=== PATIENT | female | born 1985 | race Caucasian/White ===

== ENCOUNTER 2020-11-04 09:48 | Day surgery (SDC) | payer OTHER, SELFPAY ==
[~2020-11-04] VITALS: Ht 162.6 cm; Wt 75.7 kg
[2020-11-04] MEDS ORDERED: BUPIVACAINE MPF 0.25% 10 ML VIAL INJ ONE (12:00)
[2020-11-04] MEDS ORDERED: LIDOCAINE MPF 1% 10 ML ONE (12:00)
[2020-11-04] MEDS ORDERED: PROPOFOL 200 MG/20 ML VIAL IV ONE (12:17)
[2020-11-04] MEDS ORDERED: ROCURONIUM 50 MG/5 ML VIAL IV ONE (12:17)
[2020-11-04] MEDS ORDERED: fentaNYL citrate 0.05 MG/ML VIAL ONE (12:17)
[2020-11-04] MEDS ORDERED: ONDANSETRON 4 MG/2 ML VIAL ONE (12:17)
[2020-11-04] MEDS ORDERED: SUCCINYLCHOLINE CHLORIDE 200 MG/10 ML VIAL IVP ONE (12:17)
[2020-11-04] MEDS ORDERED: KETOROLAC 30 MG/ML VIAL ONE (12:17)
[2020-11-04] MEDS ORDERED: LIDOCAINE 2% 100 MG/5 ML SYR IVP ONE (12:17)
[2020-11-04] MEDS ORDERED: GLYCOPYRROLATE 0.2 MG/ML VIAL ONE (12:17)
[2020-11-04] MEDS ORDERED: DEXAMETHASONE 4 MG/ML VIAL ONE (12:17)
[2020-11-04] MEDS ORDERED: MIDAZOLAM 2 MG/2 ML VIAL ONE (12:17)
[2020-11-04] MEDS ORDERED: SEVOFLURANE 250 ML BTL INH ONE (12:17)
[2020-11-04] MEDS ORDERED: METOCLOPRAMIDE 10 MG/2 ML INJ VIAL ONE (12:17)
[2020-11-04] MEDS ORDERED: ceFAZolin 1,000 MG VIAL ONE (12:17)
[2020-11-04] MEDS ORDERED: HYDROmorphone 1 MG/ML AMP IVP PRN ×2 (12:30→13:40)
[2020-11-04] MEDS ORDERED: ONDANSETRON 4 MG/2 ML VIAL IVP PRN (12:30)
[2020-11-04] MEDS ORDERED: diphenhydrAMINE 50 MG/ML VIAL IVP PRN (12:30)
[2020-11-04] MEDS ORDERED: MEPERIDINE 25 MG/ML SYR IVP PRN (12:30)
[2020-11-04] MEDS ORDERED: LACTATED RINGERS 1,000 ML IV SCH (12:30)
[2020-11-04] MEDS: HYDROmorphone PFS 2 MG/ML SYR ONE ×2 (13:32→13:42)
[2020-11-04] MEDS ORDERED: MORPHINE SULFATE 4 MG/ML SYR IV PRN (13:40)
[2020-11-04] MEDS ORDERED: MORPHINE SULFATE 2 MG/ML SYR IVP PRN (13:40)
[2020-11-04] MEDS ORDERED: HYDROcodone/APAP 5/325 MG 1 TAB TAB PO PRN (13:40)
[2020-11-04] MEDS ORDERED: ONDANSETRON 4 MG/2 ML VIAL IV PRN (13:40)
== END 2020-11-04 15:48 | disposition home or self-care (01) ==
LOC: MDS 09:48 → MMU 09:50 → MDS 15:48
PROVIDERS: ATTEND Surgery
DX: K80.10 Calculus of gallbladder with chronic cholecystitis without obstruction (principal); Z88.2 Allergy status to sulfonamides; Z20.828 Contact with and (suspected) exposure to other viral communicable diseases
CPT/HCPCS: 36415; 47562; 82374; 86886; 86900; 86901; J0330; J0690; J1100; J1170; J1885; J2001; J2250; J2405; J2704; J2765; J3010; J3490; J7030; J7060; J7120; U0003